=== PATIENT | female | born 1970 | race Two or more races ===

== ENCOUNTER 2016-07-18 10:48 | Emergency (ER) | payer BC ==
[2016-07-18] MEDS ORDERED: Sodium Chloride 0.9% 10 ML Syringe FLUSH PRN (11:25)
--- NOTE | 2016-07-18 11:30 | EDM.PDOC ---
ED HISTORY OF PRESENT ILLNESS - General Chief Complaint: Back Pain or Injury Stated Complaint: MID BACK PAIN WHEN BREATHING Time Seen by Provider: 07/18/16 11:14 Source of Information: Reports: Patient History Limitations: Reports: No limitations - History of Present Illness INITIAL COMMENTS - FREE TEXT/NARRATIVE: Patient presents for evaluation and treatment of mid back pain and shortness of breath. Patient reports that the symptoms woke her from sleep around 9 AM this morning. She states that she has upper back pain that is worse with breathing, movement and walking. She reports leaning forward improves the pain. Patient reports that the pain comes and go. She describes this as a pressure. She states that a 9/10 at its worst and is currently a 9 out of 10. She has not take anything for the pain thus far. She denies any trauma to her chest or back. She denies any chest pain, nausea, vomiting, diaphoresis. She reports that she has some swelling in her lower legs. States She was ill with a common cold recently. Symptoms have mostly resolved. patient is concerned that she may have a blood clot. She states that as a child she had a blood clot in her right arm. She states that she has a family history of protein S deficiency and has multiple family members with blood clots. She reports travel to [place] in May but no travel since then. She is not on any medications. She has not have any known medical conditions. 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 No other back problems. 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 Social & Family History - Tobacco Use Smoking Status *Q: Former Smoker Used Tobacco, but Quit: Yes Month Tobacco Last Used: 17 years ago Second Hand Smoke Exposure: No - Caffeine Use Caffeine Use: Reports: Coffee - Recreational Drug Use Recreational Drug Use: No ED ROS GENERAL - Review of Systems Review Of Systems: See Below Constitutional: Denies: fever Respiratory: Reports: pleuritic chest pain. Denies: shortness of breath Cardiovascular: Reports: Edema. Denies: Chest pain GI/Abdominal: Denies: Nausea, Vomiting Musculoskeletal: Reports: back pain (mid to upper back) ED EXAM, GENERAL - Physical Exam Exam: See Below Exam Limited By: No limitations General Appearance: alert, WD/WN, no apparent distress Ears: normal external exam Nose: normal inspection Throat/Mouth: Normal inspection, Normal lips, Normal teeth, Normal gums, Normal oropharynx, Normal voice, No airway compromise Neck: normal inspection, non-tender, full range of motion Respiratory/Chest: no respiratory distress, lungs clear, normal breath sounds, chest non-tender Cardiovascular: normal peripheral pulses, regular rate, rhythm, no edema, no murmur Peripheral Pulses: 2+: radial (L), radial (R) GI/Abdominal: soft, non tender Extremities: other (negative homans sign) Neurological: alert, oriented, normal cognition, normal gait Psychiatric: normal affect, normal mood Skin Exam: Warm, Dry, No rash EKG INTERPRETATION EKG Date: 07/18/16 Time: 11:50 Rhythm: NSR Rate (beats/min): 73 [place]: normal P-wave: present QRS: normal ST-T: normal QT: normal Comparison: NA - no prior EKG EKG Interpretation Comments: NSR at 73 bpm. No acute findings. Reviewed by myself and Dr. Stokes. Course - Vital Signs Last Recorded V/S: Last Vital Signs Temp 36.8 C 07/18/16 10:58 Pulse 63 07/18/16 14:17 Resp 16 07/18/16 14:17 BP 147/83 H 07/18/16 14:17 Pulse Ox 100 07/18/16 14:17 - Orders/Labs/Meds Labs: Laboratory Tests 07/18/16 07/18/16 07/18/16 Range/Units 11:49 11:49 11:49 WBC 5.76 (3.98-10.04) K/mm3 RBC 4.66 (3.98-5.22) M/mm3 Hgb 13.0 (11.2-15.7) gm/L Hct 40.4 (34.1-44.9) % MCV 86.7 (79.4-94.8) fl MCH 27.9 (25.6-32.2) pg MCHC 32.2 (32.2-35.5) g/dl RDW Std Deviation 42.8 (36.4-46.3) fL Plt Count 398 H (182-369) K/mm3 MPV 10.0 (9.4-12.3) fl Neut % (Auto) 57.1 (34.0-71.1) % Lymph % (Auto) 31.9 (19.3-51.7) % [place] % (Auto) 6.1 (4.7-12.5) % Eos % (Auto) 4.0 (0.7-5.8) Baso % (Auto) 0.7 (0.1-1.2) % Neut # 3.29 (1.56-6.13) K/mm3 Lymph # 1.84 (1.18-3.74) K/mm3 [place] # 0.35 (0.24-0.36) K/mm3 Eos # 0.23 (0.04-0.36) K/mm3 Baso # 0.04 (0.01-0.08) K/mm3 ESR 21 H (0-20) mm/hr D-Dimer, Quantitative 0.37 (0.19-0.59) mg/L Sodium (136-145) mEq/L Potassium (3.5-5.1) mEq/L Chloride (98-107) mEq/L Carbon Dioxide (21-32) mEq/L Anion Gap (5-15) BUN (7-18) mg/dL Creatinine (0.55-1.02) mg/dL Est Cr Clr Drug Dosing mL/min Estimated GFR (MDRD) (>60) mL/min BUN/Creatinine Ratio (14-18) Glucose (74-106) mg/dL Calcium (8.5-10.1) mg/dL Total Bilirubin (0.2-1.0) mg/dL AST (15-37) U/L ALT (14-59) U/L Alkaline Phosphatase (46-116) U/L Troponin I (0.00-0.056) ng/mL C-Reactive Protein (<1.0) mg/dL Total Protein (6.4-8.2) g/dl Albumin (3.4-5.0) g/dl Globulin gm/dL Albumin/Globulin Ratio (1-2) Lipase (73-393) U/L 07/18/16 Range/Units 11:49 WBC (3.98-10.04) K/mm3 RBC (3.98-5.22) M/mm3 Hgb (11.2-15.7) gm/L Hct (34.1-44.9) % MCV (79.4-94.8) fl MCH (25.6-32.2) pg MCHC (32.2-35.5) g/dl RDW Std Deviation (36.4-46.3) fL Plt Count (182-369) K/mm3 MPV (9.4-12.3) fl Neut % (Auto) (34.0-71.1) % Lymph % (Auto) (19.3-51.7) % [place] % (Auto) (4.7-12.5) % Eos % (Auto) (0.7-5.8) Baso % (Auto) (0.1-1.2) % Neut # (1.56-6.13) K/mm3 Lymph # (1.18-3.74) K/mm3 [place] # (0.24-0.36) K/mm3 Eos # (0.04-0.36) K/mm3 Baso # (0.01-0.08) K/mm3 ESR (0-20) mm/hr D-Dimer, Quantitative (0.19-0.59) mg/L Sodium 141 (136-145) mEq/L Potassium 4.0 (3.5-5.1) mEq/L Chloride 106 (98-107) mEq/L Carbon Dioxide 23 (21-32) mEq/L Anion Gap 16.0 H (5-15) BUN 10 (7-18) mg/dL Creatinine 0.8 (0.55-1.02) mg/dL Est Cr Clr Drug Dosing 78.23 mL/min Estimated GFR (MDRD) > 60 (>60) mL/min BUN/Creatinine Ratio 12.5 L (14-18) Glucose 106 (74-106) mg/dL Calcium 8.5 (8.5-10.1) mg/dL Total Bilirubin 1.0 (0.2-1.0) mg/dL AST 10 L (15-37) U/L ALT 20 (14-59) U/L Alkaline Phosphatase 81 (46-116) U/L Troponin I < 0.017 (0.00-0.056) ng/mL C-Reactive Protein 0.4 (<1.0) mg/dL Total Protein 7.4 (6.4-8.2) g/dl Albumin 3.5 (3.4-5.0) g/dl Globulin 3.9 gm/dL Albumin/Globulin Ratio 0.9 L (1-2) Lipase 166 (73-393) U/L Meds: Medications Discontinued Medications Generic Name Dose Route Start Last Admin Trade Name Freq PRN Reason Stop Dose Admin Ketorolac Tromethamine 30 mg 07/18/16 12:49 07/18/16 12:52 Toradol IVPUSH 07/18/16 12:50 30 mg ONETIME ONE Administration Oxycodone/Acetaminophen 1 tab 07/18/16 13:38 07/18/16 13:40 Percocet 325-5 Mg PO 07/18/16 13:39 1 tab ONETIME ONE Administration Oxycodone/Acetaminophen Confirm 07/18/16 13:39 07/18/16 14:15 Percocet 325-5 Mg Administered 07/18/16 13:40 Not Given Dose 1 tab .ROUTE .STK-MED ONE Sodium Chloride 10 ml 07/18/16 11:25 07/18/16 11:28 Saline Flush FLUSH 10 ml ASDIRECTED PRN Administration Keep Vein Open - Radiology Interpretation Free Text/Narrative:: Chest 2 view reviewed by myself and Dr. Stokes. No acute intrathoracic process. - Re-Assessments/Exams Free Text/Narrative Re-Assessment/Exam: 07/18/16 12:45 Labs returned White blood cell count is normal at 5.76, hemoglobin 13.0 platelets are 398. D-dimer is within normal limits at 0.37. Troponin is within normal limits at less than 0.017. Lipase is within normal limits at 166. CRP is within normal limits at 0.4. ESR slightly elevated at 21. Sodium is 141, potassium 4.0, chloride is 106. Anion gap is 16.0. Discussed the labs, EKG and imaging results with the patient. Patient would like some medication at this time help with the discomfort (Patient initially declined medication for pain). Will give IV Toradol. Monitor for a short time in the ER but plan to send home today. 07/18/16 13:40 Patient reports pain is unchanged. Would like something stronger for pain. Will give 1 percocet PO. She would then like to go home. Will discharge home at this time. Discharge instructions as documented. Departure - Departure Time of Disposition: 13:39 Disposition: Home, Self-Care 01 Condition: fair Clinical Impression: Pleurisy Prescriptions: Acetaminophen/oxyCODONE [Percocet 325-5 MG] 1 tab PO Q6H PRN #10 tablet PRN Reason: Pain Instructions: Pleurisy, [id number] Referrals: PCP,None [Primary Care Provider] - Forms: ED Department Discharge Additional Instructions: You were given medication in the ER that can affect your ability to drive and operate machinery. Do not drive or operate machinery within 12 hours of taking prescription narcotic pain medication. Rest. Drink plenty of fluids. I recommend [id number] NSAIDs such as ibuprofen or Aleve for your pain relief. may take the Percocet 1/2-1 tab every 4-6 hours as needed for severe pain. Do not drive or operate machinery within 12 hours of taking the Percocet. Percocet can be habit-forming, I recommend you take as few of these as needed to control your pain. Expect your symptoms to last about one week. Should your symptoms persist beyond one week I recommend you followup with a family practice or internal medicine provider. Please return to the ER should your symptoms change or worsen.
[2016-07-18] MEDS ORDERED: Ketorolac 30 MG/ML SDV IVPUSH ONE (12:49)
[2016-07-18] MEDS ORDERED: Acetaminophen/oxyCODONE 325-5 MG Tab PO ONE (13:38)
[2016-07-18] MEDS ORDERED: Acetaminophen/oxyCODONE 325-5 MG Tab ONE (13:39)
[2016-07-18 14:18] VITALS: BP 147/83
--- NOTE | 2016-07-19 12:54 | CR ---
Chest: Two views of the chest were obtained. Comparison: No previous study. Heart size at the upper limits of normal. Upper mediastinum is normal. Lungs are clear with no acute infiltrates. Bony structures are unremarkable. Impression: 1. Heart size at the upper limits of normal. Nothing acute is seen on two-view chest x-ray. Diagnostic code #2
== END 2016-07-18 14:00 | disposition home or self-care (01) ==
LOC: JD.ED 10:48
DX: R09.1 Pleurisy (principal); Z98.890 Other specified postprocedural states; Z79.899 Other long term (current) drug therapy; Z91.041 Radiographic dye allergy status; Z91.013 Allergy to seafood; Z87.891 Personal history of nicotine dependence
CPT/HCPCS: 36415; 71020; 80053; 83690; 84484; 85025; 85379; 85652; 86140; 93005; 96374; 99285; A9270; J1885; J7050; 99284

== ENCOUNTER 2017-01-08 06:55 | Observation (INO) | payer BC ==
[~2017-01-08 06:55] MED LIST: Lidocaine 1%/Sod Bicarbonate in NS 8.4% 1 ML Syringe IV PRN; Sodium Chloride 0.9% 10 ML Syringe FLUSH PRN
[2017-01-08] MEDS ORDERED: Lidocaine 1%/Sod Bicarbonate in NS 8.4% 1 ML Syringe PRN (07:15)
[2017-01-08] MEDS ORDERED: Lidocaine 1% with EPINEPHrine 1:100,000 20 ML MDV ONE (07:15)
[2017-01-08] MEDS ORDERED: Bupivacaine 0.5% 30 ML SDV ONE (07:16)
[2017-01-08] MEDS ORDERED: Sodium Chloride 0.9% 50 ML SDV ONE (07:16)
[2017-01-08] MEDS: Lactated Ringers 1,000 ML IV SCH ×2 (07:20→13:17)
[2017-01-08] MEDS ORDERED: Scopolamine 1.5 MG Transdermal Patch TOP ONE (07:30)
[2017-01-08] MEDS ORDERED: fentaNYL 250 MCG/5 ML SDV ONE (07:31)
[2017-01-08] MEDS ORDERED: Propofol 200 MG/20 ML SDV ONE (07:31)
[2017-01-08] MEDS ORDERED: Midazolam 1 MG/ML 2 ML SDV ONE (07:31)
[2017-01-08] MEDS ORDERED: Lidocaine 1% 4 ML ONE (07:32)
[2017-01-08] MEDS ORDERED: Dexamethasone 4 MG/ML 5 ML MDV ONE (07:33)
[2017-01-08] MEDS ORDERED: Ondansetron 4 MG/2 ML SDV ONE (07:33)
[2017-01-08] MEDS ORDERED: Rocuronium 50 MG/5 ML Vial ONE (07:33)
[2017-01-08] MEDS ORDERED: ceFAZolin 1 GM Vial ONE (07:34)
--- NOTE | 2017-01-08 07:34 | PCM.PREANE ---
Preanesthetic Assessment - Procedure Proposed Procedure: [facility] - Anesthesia/Transfusion/Family Hx Anesthesia History: Prior Anesthesia Reaction Type of Anesthesia Reaction: Excessive Nausea/Vomiting Family History of Anesthesia Reaction: No Transfusion History: No Prior Transfusion(s) - Review of Systems General: No Symptoms Pulmonary: No Symptoms Cardiovascular: No Symptoms Gastrointestinal: No Symptoms Neurological: Headache (occasional ) Other: Reports: None - Physical Assessment NPO Status Date: 01/07/17 NPO Status Time: 21:30 O2 Sat by Pulse Oximetry: 97 Respiratory Rate: 17 Vital Signs: Last Vital Signs Temp 36.4 C 01/08/17 07:02 Pulse 82 01/08/17 07:02 Resp 17 01/08/17 07:02 BP 162/90 H 01/08/17 07:02 Pulse Ox 97 01/08/17 07:02 Height: 1.63 m Weight: 116.12 kg ASA Class: 2 Mental Status: Alert & Oriented x3 Airway Class: Mallampati = 1 Dentition: Reports: Normal Dentition Thyro-Mental Finger Breadths: 3 Mouth Opening Finger Breadths: 3 ROM/Head Extension: Full Lungs: Clear to Auscultation, Normal Respiratory Effort Cardiovascular: Regular Rate, Regular Rhythm - Lab Values: Laboratory Last Values WBC 5.93 K/mm3 (3.98-10.04) 01/08/17 07:16 RBC 4.44 M/mm3 (3.98-5.22) 01/08/17 07:16 Hgb 12.2 gm/L (11.2-15.7) 01/08/17 07:16 Hct 38.0 % (34.1-44.9) 01/08/17 07:16 MCV 85.6 fl (79.4-94.8) 01/08/17 07:16 MCH 27.5 pg (25.6-32.2) 01/08/17 07:16 MCHC 32.1 g/dl (32.2-35.5) L 01/08/17 07:16 RDW Std Deviation 43.2 fL (36.4-46.3) 01/08/17 07:16 Plt Count 454 K/mm3 (182-369) H 01/08/17 07:16 MPV 9.6 fl (9.4-12.3) 01/08/17 07:16 Neut % (Auto) 56.2 % (34.0-71.1) 01/08/17 07:16 Lymph % (Auto) 30.5 % (19.3-51.7) 01/08/17 07:16 [place] % (Auto) 6.4 % (4.7-12.5) 01/08/17 07:16 Eos % (Auto) 5.4 (0.7-5.8) 01/08/17 07:16 Baso % (Auto) 1.2 % (0.1-1.2) 01/08/17 07:16 Neut # (Auto) 3.33 K/mm3 (1.56-6.13) 01/08/17 07:16 Lymph # (Auto) 1.81 K/mm3 (1.18-3.74) 01/08/17 07:16 [place] # (Auto) 0.38 K/mm3 (0.24-0.36) H 01/08/17 07:16 Eos # (Auto) 0.32 K/mm3 (0.04-0.36) 01/08/17 07:16 Baso # (Auto) 0.07 K/mm3 (0.01-0.08) 01/08/17 07:16 - Allergies Allergies/Adverse Reactions: Allergies Allergy/AdvReac Type Severity Reaction Status Date / Time adhesive Allergy Rash Verified 01/08/17 07:23 Iodine and Iodide Containing Allergy Anaphylactic Verified 01/08/17 07:23 Produc Shock shellfish derived Allergy Anaphylactic Verified 01/08/17 07:23 Shock - Blood Blood Available: No Product(s) Available: None (type and screen completed ) - Anesthesia Plan Pre-Op Medication Ordered: None - Acknowledgements Anesthesia Type Planned: General Anesthesia Pt an Appropriate Candidate for the Planned Anesthesia: Yes Alternatives and Risks of Anesthesia Discussed w Pt/Guardian: Yes Pt/Guardian Understands and Agrees with Anesthesia Plan: Yes PreAnesthesia Questionnaire - Past Health History Medical/Surgical History: Denies Medical/Surgical History HEENT History: Reports: Allergic Rhinitis Cardiovascular History: Reports: None Respiratory History: Reports: None Gastrointestinal History: Reports: None Genitourinary History: Reports: None 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) Other OB/BYN History: Menorrhagia Musculoskeletal History: Reports: None Neurological History: Reports: Migraines Psychiatric History: Reports: None Endocrine/Metabolic History: Reports: None Hematologic History: Reports: None Immunologic History: Reports: None Oncologic (Cancer) History: Reports: None Dermatologic History: Reports: Urticaria Other Dermatologic History: chronic hive disorder - Infectious Disease History Infectious Disease History: Reports: None - Past Surgical History Head Surgeries/Procedures: Reports: None HEENT Surgical History: Reports: None Cardiovascular Surgical History: Reports: None Respiratory Surgical History: Reports: None GI Surgical History: Reports: None Female Surgical History: Reports: Section, Tubal Ligation Endocrine Surgical History: Reports: None Neurological Surgical History: Reports: None Musculoskeletal Surgical History: Reports: None Oncologic Surgical History: Reports: None Dermatological Surgical History: Reports: None - SUBSTANCE USE Smoking Status *Q: Former Smoker (quit 178 years ago) Tobacco Use Within Last Twelve Months: Cigarettes Second Hand Smoke Exposure: No Recreational Drug Use History: No - HOME MEDS Home Medications: Home Meds Fexofenadine [Alem] 180 mg PO DAILY PRN 07/03/15 [History] - CURRENT (IN HOUSE) MEDS Current Meds: Current Medications Lactated Ringer's (Ringers, Lactated) 1,000 mls @ 125 mls/hr IV ASDIRECTED CHIDI Stop: 01/08/17 23:00 Last Admin: 01/08/17 07:20 Dose: 125 mls/hr Lidocaine/Sodium Bicarbonate (Buffered Lidocaine 1% In Ns 8.4%) 0.25 ml .XX ONETIME PRN PRN Reason: Prior to IV Start Stop: 01/08/17 18:00 Last Admin: 01/08/17 07:19 Dose: 0.25 ml Scopolamine (Transderm-Scop) 1.5 mg TOP ONETIME ONE Stop: 01/08/17 07:31 Last Admin: 01/08/17 07:28 Dose: 1.5 mg Sodium Chloride (Saline Flush) 10 ml FLUSH ASDIRECTED PRN PRN Reason: Keep Vein Open Stop: 01/08/17 18:00 Discontinued Medications Bupivacaine HCl (Marcaine 0.5%) Confirm Administered Dose 30 ml .ROUTE .STK-MED ONE Stop: 01/08/17 07:17 Cefazolin Sodium (Ancef) Confirm Administered Dose 2 gm .ROUTE .STK-MED ONE Stop: 01/08/17 07:35 Dexamethasone (Dexamethasone) Confirm Administered Dose 20 mg .ROUTE .STK-MED ONE Stop: 01/08/17 07:34 Fentanyl (Sublimaze) Confirm Administered Dose 250 mcg .ROUTE .STK-MED ONE Stop: 01/08/17 07:32 Lidocaine HCl (Xylocaine-Mpf 1%) Confirm Administered Dose 4 mls @ as directed .ROUTE .STK-MED ONE Stop: 01/08/17 07:33 Lidocaine/Epinephrine (Xylocaine 1% With Epinephrine 1:100,000) Confirm Administered Dose 20 ml .ROUTE .STK-MED ONE Stop: 01/08/17 07:16 Lidocaine/Sodium Bicarbonate (Buffered Lidocaine 1% In Ns 8.4%) 0.25 ml IV ONETIME PRN PRN Reason: Prior to IV Start Midazolam HCl (Versed 1 Mg/Ml) Confirm Administered Dose 2 mg .ROUTE .STK-MED ONE Stop: 01/08/17 07:32 Ondansetron HCl (Zofran) Confirm Administered Dose 4 mg .ROUTE .STK-MED ONE Stop: 01/08/17 07:34 Propofol (Diprivan 20 Ml) Confirm Administered Dose 200 mg .ROUTE .STK-MED ONE Stop: 01/08/17 07:32 Rocuronium [place] (Zemuron) Confirm Administered Dose 50 mg .ROUTE .STK-MED ONE Stop: 01/08/17 07:34 Sodium Chloride (Normal Saline) Confirm Administered Dose 50 ml .ROUTE .STK-MED ONE Stop: 01/08/17 07:17
[2017-01-08] MEDS ORDERED: Ketamine 500 mg/10 ML MDV ONE (08:23)
[2017-01-08] MEDS ORDERED: HYDROmorphone 1 MG/ML Syringe ONE (08:55)
[2017-01-08] MEDS ORDERED: Promethazine 6.25 MG in Sodium Chloride 0.9% 50 ML IV PRN (09:57)
[2017-01-08] MEDS ORDERED: Meperidine PF 50 MG/ML Syringe IVPUSH PRN (09:57)
[2017-01-08] MEDS ORDERED: diphenhydrAMINE 50 MG/ML SDV IVPUSH PRN (09:57)
[2017-01-08] MEDS ORDERED: HYDROmorphone 0.5 MG/0.5 ML Syringe IVPUSH PRN ×2 (10:30→12:43)
[2017-01-08] MEDS ORDERED: fentaNYL 100 MCG/2 ML SDV IVPUSH PRN (10:30)
[2017-01-08] MEDS ORDERED: Neostigmine Methylsulfate 10 MG/10 ML MDV ONE (10:50)
[2017-01-08] MEDS ORDERED: Glycopyrrolate 0.2 MG/ML SDV ONE (10:50)
--- NOTE | 2017-01-08 11:07 | PCM.POSTAN ---
POST ANESTHESIA ASSESSMENT - MENTAL STATUS Mental Status: Somnolent - VITAL SIGNS Pulse Rate: 73 SaO2: 97 Resp Rate: 17 Blood Pressure: 132/93 Temperature: 36.1 C - RESPIRATORY Respiratory Status: Respiratory Rate WNL, Airway Patent, O2 Saturation Stable, Supplemental Oxygen - CARDIOVASCULAR CV Status: Pulse Rate WNL, Blood Pressure Stable - GASTROINTESTINAL GI Status: No Symptoms - PAIN Pain Score: 0 - POST OP HYDRATION Hydration Status: Adequate & Stable
--- NOTE | 2017-01-08 11:07 | PCM.OPNOTE ---
- General Post-Op/Procedure Note Date of Surgery/Procedure: 01/08/17 Operative Procedure(s): Laparoscope assisted vaginal hysterectomy bilateral salpingo-oophorectomy 64592 Pre Op Diagnosis: Menorrhagia with bleeding every 2 weeks lasting 9 days heavy flow Post-Op Diagnosis: Same Anesthesia Technique: General ET Tube Primary Surgeon: Len Trent Secondary Surgeon: Marian Billy Anesthesia Provider: Wyatt Ramsey Lifter: Kajal Ray (MS4) Lifter: Divya Wilder (PAS) Fluid Replacement, Intraop: 1,500 Output, Urine Amount: 250 EBL in mLs: 100 Complications: None Condition: Good Free Text/Narrative:: Patient was transported to operating room #2 and placed under general anesthesia with endotracheal intubation the low dorsal lithotomy position and prepared and draped in a sterile fashion with non-iodine prep. Examination under anesthesia revealed upper limits to 6 weeks size uterus no adnexal masses SCDs in place and functioning prior surgery Ancef 2 g given intravenously prior to surgery timeout performed confirming name date of and procedure as laparoscope assisted vaginal hysterectomy bilateral salpingo-oophorectomy possible total abdominal hysterectomy bilateral salpingo-oophorectomy ( laparoscope assisted vaginal hysterectomy with bilateral salpingo-oophorectomy was performed) uterine manipulator was placed Hess catheter had been placed gravity drainage prior to placing the uterine manipulator and 2 mL of 0.5% Marcaine injected in the area of the planned umbilical incision and suprapubic incision. A 5 mm incision made at the umbilicus and suprapubically and varies needle introduced and pneumoperitoneum was obtained 5 mm trocar was then introduced and prompt visualization of the pelvic organs was accomplished the suprapubic 5 mm port was then passed and utilizing manipulator the tubes that were remaining after the tubal ligation the ovaries and uterus were identified the appendix was normal of the liver was normal. The decision was made to proceed with the laparoscope assisted portion of the hysterectomy additional trocar ports were placed on the left and right side trying to avoid the inferior epigastric vessels the left tube and ovary were grasped and elevated and crossclamping utilizing the LigaSure crossclamping activating and incising the infundibulopelvic ligament with good hemostasis. Proceeding towards the uterus remaining in the the area below the ovary and tube crossclamping activating and incising with the LigaSure until the tube and ovary were freed up from their blood supply the round ligament was then crossclamped with LigaSure activated and incised and proceeding caudad crossclamping activating and incising until the uterine supplied of blood of the left side was crossclamped and then a bladder flap was created crossclamping activating and incising with LigaSure until hemostasis was confirmed. Same procedure was carried out on the opposite side. And hemostasis was normal the tubes and ovaries were freed from their blood supply and attachments and decision made to then proceed vaginally. The trochars were left in place to reevaluate the surgical area after completion of the surgery. The uterus was grasped vaginally having removed the uterine manipulator during the vaginal portion of the procedure the cervix was injected with 0.25% lidocaine with epinephrine utilizing 10 mL and circumscribing the cervix with a knife the posterior colpotomy was performed. The uterosacral cardinal ligaments were then crossclamped utilizing LigaSure impact. Crossclamping activating and incising proceeding cephalad crossclamping activating and incising small pedicles were removed and the anterior colpotomy was able to be performed. The uterus was removed intact with the uterus and tubes and ovaries. Sponge needle pack asthma sharp count correct 2 the posterior cuff anterior cuff were closed with running locking suture of #0 Monocryl. Reinspection of the surgical site utilizing the laparoscope showed no bleeding irrigation carried out the irrigation fluid removed and still no bleeding sponge needle pack asthma sharp count correct 2 and the trochars were removed from the abdomen and the 4 incisions closed with interrupted 4-0 Monocryl and Dermabond applied. No blood transfusions were required not anticipated. Patient was transported postanesthesia care unit in satisfactory condition. I talked with family QUESTIONS were answered to their voiced satisfaction. One set of pictures taken image 001 shows the uterus and left side image 002 shows the left ovary and tube image 003 shows a right ovary and tube image 004 shows right ovary attempted appendix and the cecum. Image 005 shows the liver and diaphragm area. Image 006 shows the area of the surgery with no bleeding after completion of the procedure. I talked with the family and they live in town but I we will probably keep patient on observation status overnight because of difficulty of the procedure and to treat any nausea and vomiting as patient has a history of having nausea after surgery. And also for pain management.
[2017-01-08] MEDS ORDERED: Ketorolac 30 MG/ML SDV ONE (11:12)
--- NOTE | 2017-01-08 11:12 | PCM.DCSUM1 ---
Discharge Summary - Hospital Course Free Text/Narrative:: [facility] Post-Op/Procedure Note Patient Name: ANDI FIELDS Date of : 68 Patient Status: Surgical Day Care Attending Provider: Len Trent Date: 01/08/17 10:54 Initialization Date: 01/08/17 10:54 - General Post-Op/Procedure Note Date of Surgery/Procedure: 01/08/17 Operative Procedure(s): Laparoscope assisted vaginal hysterectomy bilateral salpingo-oophorectomy 33475 Pre Op Diagnosis: Menorrhagia with bleeding every 2 weeks lasting 9 days heavy flow Post-Op Diagnosis: Same Anesthesia Technique: General ET Tube Primary Surgeon: Len Trent Secondary Surgeon: Marian Billy Anesthesia Provider: Wyatt Ramsey Laminator Preforms: Kajal Ray (MS4) Laminator Preforms: Divya Wilder (PAS) Fluid Replacement, Intraop: 1,500 Output, Urine Amount: 250 EBL in mLs: 100 Complications: None Condition: Good Free Text/Narrative:: Patient was transported to operating room #2 and placed under general anesthesia with endotracheal intubation the low dorsal lithotomy position and prepared and draped in a sterile fashion with non-iodine prep. Examination under anesthesia revealed upper limits to 6 weeks size uterus no adnexal masses SCDs in place and functioning prior surgery Ancef 2 g given intravenously prior to surgery timeout performed confirming name date of and procedure as laparoscope assisted vaginal hysterectomy bilateral salpingo-oophorectomy possible total abdominal hysterectomy bilateral salpingo-oophorectomy ( laparoscope assisted vaginal hysterectomy with bilateral salpingo-oophorectomy was performed) uterine manipulator was placed Hess catheter had been placed gravity drainage prior to placing the uterine manipulator and 2 mL of 0.5% Marcaine injected in the area of the planned umbilical incision and suprapubic incision. A 5 mm incision made at the umbilicus and suprapubically and varies needle introduced and pneumoperitoneum was obtained 5 mm trocar was then introduced and prompt visualization of the pelvic organs was accomplished the suprapubic 5 mm port was then passed and utilizing manipulator the tubes that were remaining after the tubal ligation the ovaries and uterus were identified the appendix was normal of the liver was normal. The decision was made to proceed with the laparoscope assisted portion of the hysterectomy additional trocar ports were placed on the left and right side trying to avoid the inferior epigastric vessels the left tube and ovary were grasped and elevated and crossclamping utilizing the LigaSure crossclamping activating and incising the infundibulopelvic ligament with good hemostasis. Proceeding towards the uterus remaining in the the area below the ovary and tube crossclamping activating and incising with the LigaSure until the tube and ovary were freed up from their blood supply the round ligament was then crossclamped with LigaSure activated and incised and proceeding caudad crossclamping activating and incising until the uterine supplied of blood of the left side was crossclamped and then a bladder flap was created crossclamping activating and incising with LigaSure until hemostasis was confirmed. Same procedure was carried out on the opposite side. And hemostasis was normal the tubes and ovaries were freed from their blood supply and attachments and decision made to then proceed vaginally. The trochars were left in place to reevaluate the surgical area after completion of the surgery. The uterus was grasped vaginally having removed the uterine manipulator during the vaginal portion of the procedure the cervix was injected with 0.25% lidocaine with epinephrine utilizing 10 mL and circumscribing the cervix with a knife the posterior colpotomy was performed. The uterosacral cardinal ligaments were then crossclamped utilizing LigaSure impact. Crossclamping activating and incising proceeding cephalad crossclamping activating and incising small pedicles were removed and the anterior colpotomy was able to be performed. The uterus was removed intact with the uterus and tubes and ovaries. Sponge needle pack asthma sharp count correct 2 the posterior cuff anterior cuff were closed with running locking suture of #0 Monocryl. Reinspection of the surgical site utilizing the laparoscope showed no bleeding irrigation carried out the irrigation fluid removed and still no bleeding sponge needle pack asthma sharp count correct 2 and the trochars were removed from the abdomen and the 4 incisions closed with interrupted 4-0 Monocryl and Dermabond applied. No blood transfusions were required not anticipated. Patient was transported postanesthesia care unit in satisfactory condition. I talked with family QUESTIONS were answered to their voiced satisfaction. One set of pictures taken image 001 shows the uterus and left side image 002 shows the left ovary and tube image 003 shows a right ovary and tube image 004 shows right ovary attempted appendix and the cecum. Image 005 shows the liver and diaphragm area. Image 006 shows the area of the surgery with no bleeding after completion of the procedure. I talked with the family and they live in town but I we will probably keep patient on observation status overnight because of difficulty of the procedure and to treat any nausea and vomiting as patient has a history of having nausea after surgery. And also for pain management. HPI Initial Comments: [facility] Post-Op/Procedure Note Patient Name: ANDI FIELDS Date of : 68 Patient Status: Surgical Day Care Attending Provider: Len Trent Date: 01/08/17 10:54 Initialization Date: 01/08/17 10:54 - General Post-Op/Procedure Note Date of Surgery/Procedure: 01/08/17 Operative Procedure(s): Laparoscope assisted vaginal hysterectomy bilateral salpingo-oophorectomy 98650 Pre Op Diagnosis: Menorrhagia with bleeding every 2 weeks lasting 9 days heavy flow Post-Op Diagnosis: Same Anesthesia Technique: General ET Tube Primary Surgeon: Len Trent Secondary Surgeon: Marian Billy Anesthesia Provider: Wyatt Ramsey Laminator Preforms: Kajal Ray (MS4) Laminator Preforms: Divya Wilder (PAS) Fluid Replacement, Intraop: 1,500 Output, Urine Amount: 250 EBL in mLs: 100 Complications: None Condition: Good Free Text/Narrative:: Patient was transported to operating room #2 and placed under general anesthesia with endotracheal intubation the low dorsal lithotomy position and prepared and draped in a sterile fashion with non-iodine prep. Examination under anesthesia revealed upper limits to 6 weeks size uterus no adnexal masses SCDs in place and functioning prior surgery Ancef 2 g given intravenously prior to surgery timeout performed confirming name date of and procedure as laparoscope assisted vaginal hysterectomy bilateral salpingo-oophorectomy possible total abdominal hysterectomy bilateral salpingo-oophorectomy ( laparoscope assisted vaginal hysterectomy with bilateral salpingo-oophorectomy was performed) uterine manipulator was placed Hess catheter had been placed gravity drainage prior to placing the uterine manipulator and 2 mL of 0.5% Marcaine injected in the area of the planned umbilical incision and suprapubic incision. A 5 mm incision made at the umbilicus and suprapubically and varies needle introduced and pneumoperitoneum was obtained 5 mm trocar was then introduced and prompt visualization of the pelvic organs was accomplished the suprapubic 5 mm port was then passed and utilizing manipulator the tubes that were remaining after the tubal ligation the ovaries and uterus were identified the appendix was normal of the liver was normal. The decision was made to proceed with the laparoscope assisted portion of the hysterectomy additional trocar ports were placed on the left and right side trying to avoid the inferior epigastric vessels the left tube and ovary were grasped and elevated and crossclamping utilizing the LigaSure crossclamping activating and incising the infundibulopelvic ligament with good hemostasis. Proceeding towards the uterus remaining in the the area below the ovary and tube crossclamping activating and incising with the LigaSure until the tube and ovary were freed up from their blood supply the round ligament was then crossclamped with LigaSure activated and incised and proceeding caudad crossclamping activating and incising until the uterine supplied of blood of the left side was crossclamped and then a bladder flap was created crossclamping activating and incising with LigaSure until hemostasis was confirmed. Same procedure was carried out on the opposite side. And hemostasis was normal the tubes and ovaries were freed from their blood supply and attachments and decision made to then proceed vaginally. The trochars were left in place to reevaluate the surgical area after completion of the surgery. The uterus was grasped vaginally having removed the uterine manipulator during the vaginal portion of the procedure the cervix was injected with 0.25% lidocaine with epinephrine utilizing 10 mL and circumscribing the cervix with a knife the posterior colpotomy was performed. The uterosacral cardinal ligaments were then crossclamped utilizing LigaSure impact. Crossclamping activating and incising proceeding cephalad crossclamping activating and incising small pedicles were removed and the anterior colpotomy was able to be performed. The uterus was removed intact with the uterus and tubes and ovaries. Sponge needle pack asthma sharp count correct 2 the posterior cuff anterior cuff were closed with running locking suture of #0 Monocryl. Reinspection of the surgical site utilizing the laparoscope showed no bleeding irrigation carried out the irrigation fluid removed and still no bleeding sponge needle pack asthma sharp count correct 2 and the trochars were removed from the abdomen and the 4 incisions closed with interrupted 4-0 Monocryl and Dermabond applied. No blood transfusions were required not anticipated. Patient was transported postanesthesia care unit in satisfactory condition. I talked with family QUESTIONS were answered to their voiced satisfaction. One set of pictures taken image 001 shows the uterus and left side image 002 shows the left ovary and tube image 003 shows a right ovary and tube image 004 shows right ovary attempted appendix and the cecum. Image 005 shows the liver and diaphragm area. Image 006 shows the area of the surgery with no bleeding after completion of the procedure. I talked with the family and they live in town but I we will probably keep patient on observation status overnight because of difficulty of the procedure and to treat any nausea and vomiting as patient has a history of having nausea after surgery. And also for pain management. Brief History: [facility] . [facility]Pro[facility]. [facility]: [id number] Date of : Patient Status: Surgical Day Care. Attending Provider: Len rTentount Number: [id number]. Date: 01/08/17 10:54Initialization Date: 10:54. - General Post-Op/Procedure Note. Date of Surgery/Procedure: . Operative Procedure(s): Laparoscope assisted vaginal hysterectomy bilateral salpingo-oophorectomy 02178. Pre Op Diagnosis: Menorrhagia with bleeding every 2 weeks lasting 9 days heavy flow. Post-Op Diagnosis: Same. Anesthesia Technique: General ET Tube. Primary Surgeon: Len Trent. Secondary Surgeon: Marian Billy. Anesthesia Provider: Wyatt Ramsey. Laminator Preforms: Kajal Ray (MS4). Laminator Preforms: Divya Wilder (PAS). Fluid Replacement, Intraop: 1,500. Output, Urine Amount: 250. EBL in mLs: 100. Complications: None. Condition: Good. Free Text/Narrative:: Patient was transported to operating room #2 and placed under general anesthesia with endotracheal intubation the low dorsal lithotomy position and prepared and draped in a sterile fashion with non-iodine prep. Examination under anesthesia revealed upper limits to 6 weeks size uterus no adnexal masses SCDs in place and functioning prior surgery Ancef 2 g given intravenously prior to surgery timeout performed confirming name date of and procedure as laparoscope assisted vaginal hysterectomy bilateral salpingo-oophorectomy possible total abdominal hysterectomy bilateral salpingo-oophorectomy (laparoscope assisted vaginal hysterectomy with bilateral salpingo-oophorectomy was performed) uterine manipulator was placed Hess catheter had been placed gravity drainage prior to placing the uterine manipulator and 2 mL of 0.5% Marcaine injected in the area of the planned umbilical incision and suprapubic incision. A 5 mm incision made at the umbilicus and suprapubically and varies needle introduced and pneumoperitoneum was obtained 5 mm trocar was then introduced and prompt visualization of the pelvic organs was accomplished the suprapubic 5 mm port was then passed and utilizing manipulator the tubes that were remaining after the tubal ligation the ovaries and uterus were identified the appendix was normal of the liver was normal. The decision was made to proceed with the laparoscope assisted portion of the hysterectomy additional trocar ports were placed on the left and right side trying to avoid the inferior epigastric vessels the left tube and ovary were grasped and elevated and crossclamping utilizing the LigaSure crossclamping activating and incising the infundibulopelvic ligament with good hemostasis. Proceeding towards the uterus remaining in the the area below the ovary and tube crossclamping activating and incising with the LigaSure until the tube and ovary were freed up from their blood supply the round ligament was then crossclamped with LigaSure activated and incised and proceeding caudad crossclamping activating and incising until the uterine supplied of blood of the left side was crossclamped and then a bladder flap was created crossclamping activating and incising with LigaSure until hemostasis was confirmed. Same procedure was carried out on the opposite side. And hemostasis was normal the tubes and ovaries were freed from their blood supply and attachments and decision made to then proceed vaginally. The trochars were left in place to reevaluate the surgical area after completion of the surgery. The uterus was grasped vaginally having removed the uterine manipulator during the vaginal portion of the procedure the cervix was injected with 0.25% lidocaine with epinephrine utilizing 10 mL and circumscribing the cervix with a knife the posterior colpotomy was performed. The uterosacral cardinal ligaments were then crossclamped utilizing LigaSure impact. Crossclamping activating and incising proceeding cephalad crossclamping activating and incising small pedicles were removed and the anterior colpotomy was able to be performed. The uterus was removed intact with the uterus and tubes and ovaries. Sponge needle pack asthma sharp count correct 2 the posterior cuff anterior cuff were closed with running locking suture of #0 Monocryl. Reinspection of the surgical site utilizing the laparoscope showed no bleeding irrigation carried out the irrigation fluid removed and still no bleeding sponge needle pack asthma sharp count correct 2 and the trochars were removed from the abdomen and the 4 incisions closed with interrupted 4-0 Monocryl and Dermabond applied. No blood transfusions were required not anticipated. Patient was transported postanesthesia care unit in satisfactory condition. I talked with family QUESTIONS were answered to their voiced satisfaction. One set of pictures taken image 001 shows the uterus and left side image 002 shows the left ovary and tube image 003 shows a right ovary and tube image 004 shows right ovary attempted appendix and the cecum. Image 005 shows the liver and diaphragm area. Image 006 shows the area of the surgery with no bleeding after completion of the procedure. I talked with the family and they live in town but I we will probably keep patient on observation status overnight because of difficulty of the procedure and to treat any nausea and vomiting as patient has a history of having nausea after surgery. And also for pain management. - Discharge Data Discharge Date: 01/08/17 Discharge Disposition: Home, Self-Care 01 Condition: Good - Discharge Diagnosis/Problem(s) (1) Menorrhagia SNOMED Code(s): 242191203 ICD Code: N92.0 - EXCESSIVE AND FREQUENT MENSTRUATION WITH REGULAR CYCLE Status: Acute Current Visit: Yes - Patient Summary/Data Operative Procedure(s) Performed: Laparoscope assisted vaginal hysterectomy bilateral salpingo-oophorectomy 96931 Complications: None Consults: None Hospital Course: None - Patient Instructions Diet: Regular Diet as Tolerated Driving: Do Not Drive (2 weeks) Showering/Bathing: May Shower, No Tub Bathing/Swimming (For 6 weeks) Wound/Incision Care: Keep Operative Site/Wound Site Clean and Dry Notify Provider of: Fever, Increased Pain, Swelling and Redness, Drainage, Nausea and/or Vomiting - Discharge Plan Home Medications: Home Meds Fexofenadine [Alem] 180 mg PO DAILY PRN 07/03/15 [History] Referrals: Len Trent MD [Physician] - (4 weeks) - Discharge Summary/Plan Comment DC Time >30 min.: No - Patient Data Vitals - Most Recent: Last Vital Signs Temp 97.0 F 01/08/17 11:07 Pulse 73 01/08/17 11:07 Resp 17 01/08/17 11:07 BP 132/93 H 01/08/17 11:07 Pulse Ox 97 01/08/17 11:07 Weight - Most Recent: 256 lb I&O - Last 24 hours: Intake & Output 01/07/17 01/08/17 01/08/17 22:59 06:59 14:59 Intake Total 1500 Output Total 250 Balance 1250 Lab Results - Last 24 hrs: Laboratory Results - last 24 hr 01/08/17 01/08/17 01/08/17 Range/Units 07:16 07:16 07:16 WBC 5.93 (3.98-10.04) K/mm3 RBC 4.44 (3.98-5.22) M/mm3 Hgb 12.2 (11.2-15.7) gm/L Hct 38.0 (34.1-44.9) % MCV 85.6 (79.4-94.8) fl MCH 27.5 (25.6-32.2) pg MCHC 32.1 L (32.2-35.5) g/dl RDW Std Deviation 43.2 (36.4-46.3) fL Plt Count 454 H (182-369) K/mm3 MPV 9.6 (9.4-12.3) fl Neut % (Auto) 56.2 (34.0-71.1) % Lymph % (Auto) 30.5 (19.3-51.7) % [place] % (Auto) 6.4 (4.7-12.5) % Eos % (Auto) 5.4 (0.7-5.8) Baso % (Auto) 1.2 (0.1-1.2) % Neut # (Auto) 3.33 (1.56-6.13) K/mm3 Lymph # (Auto) 1.81 (1.18-3.74) K/mm3 [place] # (Auto) 0.38 H (0.24-0.36) K/mm3 Eos # (Auto) 0.32 (0.04-0.36) K/mm3 Baso # (Auto) 0.07 (0.01-0.08) K/mm3 HCG, Quant 1.0 mIU/mL Blood Type O POSITIVE Gel Antibody Screen Negative Med Orders - Current: Current Medications Diphenhydramine HCl (Benadryl) 25 mg IVPUSH Q6H PRN PRN Reason: Pruritis Stop: 01/08/17 18:00 Lactated Ringer's (Ringers, Lactated) 1,000 mls @ 125 mls/hr IV ASDIRECTED CHIDI Stop: 01/08/17 23:00 Last Admin: 01/08/17 07:20 Dose: 125 mls/hr Promethazine HCl 6.25 mg/ (Sodium Chloride) 50.25 mls @ 100 mls/hr IV ONETIME PRN PRN Reason: Nausea/Vomiting Stop: 01/08/17 18:00 Lidocaine/Sodium Bicarbonate (Buffered Lidocaine 1% In Ns 8.4%) 0.25 ml .XX ONETIME PRN PRN Reason: Prior to IV Start Stop: 01/08/17 18:00 Last Admin: 01/08/17 07:19 Dose: 0.25 ml Meperidine HCl (Demerol) 12.5 mg IVPUSH ONETIME PRN PRN Reason: Shivering Stop: 01/08/17 18:00 Sodium Chloride (Saline Flush) 10 ml FLUSH ASDIRECTED PRN PRN Reason: Keep Vein Open Stop: 01/08/17 18:00 Discontinued Medications Bupivacaine HCl (Marcaine 0.5%) Confirm Administered Dose 30 ml .ROUTE .STK-MED ONE Stop: 01/08/17 07:17 Last Admin: 01/08/17 08:47 Dose: 30 ml Cefazolin Sodium (Ancef) Confirm Administered Dose 2 gm .ROUTE .STK-MED ONE Stop: 01/08/17 07:35 Dexamethasone (Dexamethasone) Confirm Administered Dose 20 mg .ROUTE .STK-MED ONE Stop: 01/08/17 07:34 Fentanyl (Sublimaze) Confirm Administered Dose 250 mcg .ROUTE .STK-MED ONE Stop: 01/08/17 07:32 Fentanyl (Sublimaze) 50 mcg IVPUSH Q5M PRN PRN Reason: Pain Stop: 01/08/17 10:46 Glycopyrrolate (Robinul) Confirm Administered Dose 0.4 mg .ROUTE .STK-MED ONE Stop: 01/08/17 10:51 Hydromorphone HCl (Dilaudid) Confirm Administered Dose 1 mg .ROUTE .STK-MED ONE Stop: 01/08/17 08:56 Hydromorphone HCl (Dilaudid) 0.5 mg IVPUSH Q15M PRN PRN Reason: Pain (severe 7-10) Stop: 01/08/17 10:46 Lidocaine HCl (Xylocaine-Mpf 1%) Confirm Administered Dose 4 mls @ as directed .ROUTE .STK-MED ONE Stop: 01/08/17 07:33 Ketamine HCl (Ketalar) Confirm Administered Dose 500 mg .ROUTE .STK-MED ONE Stop: 01/08/17 08:24 Ketorolac Tromethamine (Toradol) Confirm Administered Dose 30 mg .ROUTE .STK- MED ONE Stop: 01/08/17 11:13 Lidocaine/Epinephrine (Xylocaine 1% With Epinephrine 1:100,000) Confirm Administered Dose 20 ml .ROUTE .STK-MED ONE Stop: 01/08/17 07:16 Lidocaine/Sodium Bicarbonate (Buffered Lidocaine 1% In Ns 8.4%) 0.25 ml IV ONETIME PRN PRN Reason: Prior to IV Start Midazolam HCl (Versed 1 Mg/Ml) Confirm Administered Dose 2 mg .ROUTE .STK-MED ONE Stop: 01/08/17 07:32 Neostigmine Methylsulfate (Neostigmine Methylsulfate) Confirm Administered Dose 10 mg .ROUTE .STK-MED ONE Stop: 01/08/17 10:51 Ondansetron HCl (Zofran) Confirm Administered Dose 4 mg .ROUTE .STK-MED ONE Stop: 01/08/17 07:34 Propofol (Diprivan 20 Ml) Confirm Administered Dose 200 mg .ROUTE .STK-MED ONE Stop: 01/08/17 07:32 Rocuronium [place] (Zemuron) Confirm Administered Dose 50 mg .ROUTE .STK-MED ONE Stop: 01/08/17 07:34 Scopolamine (Transderm-Scop) 1.5 mg TOP ONETIME ONE Stop: 01/08/17 07:31 Last Admin: 01/08/17 07:28 Dose: 1.5 mg Sodium Chloride (Normal Saline) Confirm Administered Dose 50 ml .ROUTE .STK-MED ONE Stop: 01/08/17 07:17 *Q Meaningful Use (DIS) - VTE *Q VTE Criteria *Q: - Stroke *Q Stroke Criteria *Q: - AMI *Q AMI Criteria *Q:
[2017-01-08] MEDS ORDERED: Acetaminophen/oxyCODONE 325-5 MG Tab PO PRN (12:43)
[2017-01-08] MEDS ORDERED: Ibuprofen 600 MG Tab PO PRN (12:43)
[2017-01-08] MEDS ORDERED: Ondansetron 8 MG in Sodium Chloride 0.9% 50 ML IV ONE (12:43)
[2017-01-08] MEDS ORDERED: Loratadine 10 MG Tab PO PRN (13:00)
[2017-01-08] MEDS ORDERED: Ketorolac 30 MG/ML SDV IVPUSH PRN (17:30)
--- NOTE | 2017-01-08 18:58 | PCM.SN ---
- Free Text/Narrative Note: Awake, alert, no severe pain, no heavy vaginal bleeding. No leg cramps. Stable. Pain being manages and nausea not a problem at present.
[2017-01-09 07:51] VITALS: BP 122/68
--- NOTE | 2017-01-09 08:03 | PCM48HPAN ---
Post Anesthesia Note - EVALUATION WITHIN 48HRS OF ANESTHETIC Vital Signs in Normal Range: Yes Patient Participated in Evaluation: Yes Respiratory Function Stable: Yes Airway Patent: Yes Cardiovascular Function Stable: Yes Hydration Status Stable: Yes Pain Control Satisfactory: Yes Nausea and Vomiting Control Satisfactory: Yes Mental Status Recovered: Yes - COMMENTS/OBSERVATIONS Free Text/Narrative:: Patient doing well. Rested well last night. Denied and N/V, uncontrolled pain, or pruritus. Pt will be discharged home today.
--- NOTE | 2017-01-09 08:07 | PCM.DCSUM1 ---
Discharge Summary - Hospital Course Free Text/Narrative:: [facility] Post-Op/Procedure Note Patient Name: ANDI FIELDS Date of : 68 Patient Status: Observation Attending Provider: Len Trent Date: 01/08/17 10:54 Initialization Date: 01/08/17 10:54 - General Post-Op/Procedure Note Date of Surgery/Procedure: 01/08/17 Operative Procedure(s): Laparoscope assisted vaginal hysterectomy bilateral salpingo-oophorectomy 72159 Pre Op Diagnosis: Menorrhagia with bleeding every 2 weeks lasting 9 days heavy flow Post-Op Diagnosis: Same Anesthesia Technique: General ET Tube Primary Surgeon: Len Trent Secondary Surgeon: Marian Billy Anesthesia Provider: Wyatt Ramsey Brake Repairer: Kajal Ray (MS4) Brake Repairer: Divya Wilder (PAS) Fluid Replacement, Intraop: 1,500 Output, Urine Amount: 250 EBL in mLs: 100 Complications: None Condition: Good Free Text/Narrative:: Patient was transported to operating room #2 and placed under general anesthesia with endotracheal intubation the low dorsal lithotomy position and prepared and draped in a sterile fashion with non-iodine prep. Examination under anesthesia revealed upper limits to 6 weeks size uterus no adnexal masses SCDs in place and functioning prior surgery Ancef 2 g given intravenously prior to surgery timeout performed confirming name date of and procedure as laparoscope assisted vaginal hysterectomy bilateral salpingo-oophorectomy possible total abdominal hysterectomy bilateral salpingo-oophorectomy ( laparoscope assisted vaginal hysterectomy with bilateral salpingo-oophorectomy was performed) uterine manipulator was placed Hess catheter had been placed gravity drainage prior to placing the uterine manipulator and 2 mL of 0.5% Marcaine injected in the area of the planned umbilical incision and suprapubic incision. A 5 mm incision made at the umbilicus and suprapubically and varies needle introduced and pneumoperitoneum was obtained 5 mm trocar was then introduced and prompt visualization of the pelvic organs was accomplished the suprapubic 5 mm port was then passed and utilizing manipulator the tubes that were remaining after the tubal ligation the ovaries and uterus were identified the appendix was normal of the liver was normal. The decision was made to proceed with the laparoscope assisted portion of the hysterectomy additional trocar ports were placed on the left and right side trying to avoid the inferior epigastric vessels the left tube and ovary were grasped and elevated and crossclamping utilizing the LigaSure crossclamping activating and incising the infundibulopelvic ligament with good hemostasis. Proceeding towards the uterus remaining in the the area below the ovary and tube crossclamping activating and incising with the LigaSure until the tube and ovary were freed up from their blood supply the round ligament was then crossclamped with LigaSure activated and incised and proceeding caudad crossclamping activating and incising until the uterine supplied of blood of the left side was crossclamped and then a bladder flap was created crossclamping activating and incising with LigaSure until hemostasis was confirmed. Same procedure was carried out on the opposite side. And hemostasis was normal the tubes and ovaries were freed from their blood supply and attachments and decision made to then proceed vaginally. The trochars were left in place to reevaluate the surgical area after completion of the surgery. The uterus was grasped vaginally having removed the uterine manipulator during the vaginal portion of the procedure the cervix was injected with 0.25% lidocaine with epinephrine utilizing 10 mL and circumscribing the cervix with a knife the posterior colpotomy was performed. The uterosacral cardinal ligaments were then crossclamped utilizing LigaSure impact. Crossclamping activating and incising proceeding cephalad crossclamping activating and incising small pedicles were removed and the anterior colpotomy was able to be performed. The uterus was removed intact with the uterus and tubes and ovaries. Sponge needle pack asthma sharp count correct 2 the posterior cuff anterior cuff were closed with running locking suture of #0 Monocryl. Reinspection of the surgical site utilizing the laparoscope showed no bleeding irrigation carried out the irrigation fluid removed and still no bleeding sponge needle pack asthma sharp count correct 2 and the trochars were removed from the abdomen and the 4 incisions closed with interrupted 4-0 Monocryl and Dermabond applied. No blood transfusions were required not anticipated. Patient was transported postanesthesia care unit in satisfactory condition. I talked with family QUESTIONS were answered to their voiced satisfaction. One set of pictures taken image 001 shows the uterus and left side image 002 shows the left ovary and tube image 003 shows a right ovary and tube image 004 shows right ovary attempted appendix and the cecum. Image 005 shows the liver and diaphragm area. Image 006 shows the area of the surgery with no bleeding after completion of the procedure. I talked with the family and they live in town but I we will probably keep patient on observation status overnight because of difficulty of the procedure and to treat any nausea and vomiting as patient has a history of having nausea after surgery. And also for pain management. Did well through the night. Dismiss. HPI Initial Comments: [facility] Post-Op/Procedure Note Patient Name: ANDI FIELDS Date of : 68 Patient Status: Observation Attending Provider: Len Trent Date: 01/08/17 10:54 Initialization Date: 01/08/17 10:54 - General Post-Op/Procedure Note Date of Surgery/Procedure: 01/08/17 Operative Procedure(s): Laparoscope assisted vaginal hysterectomy bilateral salpingo-oophorectomy 76429 Pre Op Diagnosis: Menorrhagia with bleeding every 2 weeks lasting 9 days heavy flow Post-Op Diagnosis: Same Anesthesia Technique: General ET Tube Primary Surgeon: Len Trent Secondary Surgeon: Marian Billy Anesthesia Provider: Wyatt Ramsey Brake Repairer: Kajal Ray (MS4) Brake Repairer: Divya Wilder (PAS) Fluid Replacement, Intraop: 1,500 Output, Urine Amount: 250 EBL in mLs: 100 Complications: None Condition: Good Free Text/Narrative:: Patient was transported to operating room #2 and placed under general anesthesia with endotracheal intubation the low dorsal lithotomy position and prepared and draped in a sterile fashion with non-iodine prep. Examination under anesthesia revealed upper limits to 6 weeks size uterus no adnexal masses SCDs in place and functioning prior surgery Ancef 2 g given intravenously prior to surgery timeout performed confirming name date of and procedure as laparoscope assisted vaginal hysterectomy bilateral salpingo-oophorectomy possible total abdominal hysterectomy bilateral salpingo-oophorectomy ( laparoscope assisted vaginal hysterectomy with bilateral salpingo-oophorectomy was performed) uterine manipulator was placed Hess catheter had been placed gravity drainage prior to placing the uterine manipulator and 2 mL of 0.5% Marcaine injected in the area of the planned umbilical incision and suprapubic incision. A 5 mm incision made at the umbilicus and suprapubically and varies needle introduced and pneumoperitoneum was obtained 5 mm trocar was then introduced and prompt visualization of the pelvic organs was accomplished the suprapubic 5 mm port was then passed and utilizing manipulator the tubes that were remaining after the tubal ligation the ovaries and uterus were identified the appendix was normal of the liver was normal. The decision was made to proceed with the laparoscope assisted portion of the hysterectomy additional trocar ports were placed on the left and right side trying to avoid the inferior epigastric vessels the left tube and ovary were grasped and elevated and crossclamping utilizing the LigaSure crossclamping activating and incising the infundibulopelvic ligament with good hemostasis. Proceeding towards the uterus remaining in the the area below the ovary and tube crossclamping activating and incising with the LigaSure until the tube and ovary were freed up from their blood supply the round ligament was then crossclamped with LigaSure activated and incised and proceeding caudad crossclamping activating and incising until the uterine supplied of blood of the left side was crossclamped and then a bladder flap was created crossclamping activating and incising with LigaSure until hemostasis was confirmed. Same procedure was carried out on the opposite side. And hemostasis was normal the tubes and ovaries were freed from their blood supply and attachments and decision made to then proceed vaginally. The trochars were left in place to reevaluate the surgical area after completion of the surgery. The uterus was grasped vaginally having removed the uterine manipulator during the vaginal portion of the procedure the cervix was injected with 0.25% lidocaine with epinephrine utilizing 10 mL and circumscribing the cervix with a knife the posterior colpotomy was performed. The uterosacral cardinal ligaments were then crossclamped utilizing LigaSure impact. Crossclamping activating and incising proceeding cephalad crossclamping activating and incising small pedicles were removed and the anterior colpotomy was able to be performed. The uterus was removed intact with the uterus and tubes and ovaries. Sponge needle pack asthma sharp count correct 2 the posterior cuff anterior cuff were closed with running locking suture of #0 Monocryl. Reinspection of the surgical site utilizing the laparoscope showed no bleeding irrigation carried out the irrigation fluid removed and still no bleeding sponge needle pack asthma sharp count correct 2 and the trochars were removed from the abdomen and the 4 incisions closed with interrupted 4-0 Monocryl and Dermabond applied. No blood transfusions were required not anticipated. Patient was transported postanesthesia care unit in satisfactory condition. I talked with family QUESTIONS were answered to their voiced satisfaction. One set of pictures taken image 001 shows the uterus and left side image 002 shows the left ovary and tube image 003 shows a right ovary and tube image 004 shows right ovary attempted appendix and the cecum. Image 005 shows the liver and diaphragm area. Image 006 shows the area of the surgery with no bleeding after completion of the procedure. I talked with the family and they live in town but I we will probably keep patient on observation status overnight because of difficulty of the procedure and to treat any nausea and vomiting as patient has a history of having nausea after surgery. And also for pain management. Did well through the night. Dismiss. Brief History: [facility] . Post[facility]Op/Procedure Note. [facility]: [id number] Date of : Patient Status: Surgical Day Care. Attending Provider: Len Trentount Number: [id number]. Date: 01/08/17 10:54Initialization Date: 10:54. - General Post-Op/Procedure Note. Date of Surgery/Procedure: . Operative Procedure(s): Laparoscope assisted vaginal hysterectomy bilateral salpingo-oophorectomy 41026. Pre Op Diagnosis: Menorrhagia with bleeding every 2 weeks lasting 9 days heavy flow. Post-Op Diagnosis: Same. Anesthesia Technique: General ET Tube. Primary Surgeon: Len Trent. Secondary Surgeon: Marian Billy. Anesthesia Provider: Wyatt Ramsey. Brake Repairer: Kajal Ray (MS4). Brake Repairer: Divya Wilder (PAS). Fluid Replacement, Intraop: 1,500. Output, Urine Amount: 250. EBL in mLs: 100. Complications: None. Condition: Good. Free Text/Narrative:: Patient was transported to operating room #2 and placed under general anesthesia with endotracheal intubation the low dorsal lithotomy position and prepared and draped in a sterile fashion with non-iodine prep. Examination under anesthesia revealed upper limits to 6 weeks size uterus no adnexal masses SCDs in place and functioning prior surgery Ancef 2 g given intravenously prior to surgery timeout performed confirming name date of and procedure as laparoscope assisted vaginal hysterectomy bilateral salpingo-oophorectomy possible total abdominal hysterectomy bilateral salpingo-oophorectomy (laparoscope assisted vaginal hysterectomy with bilateral salpingo-oophorectomy was performed) uterine manipulator was placed Hess catheter had been placed gravity drainage prior to placing the uterine manipulator and 2 mL of 0.5% Marcaine injected in the area of the planned umbilical incision and suprapubic incision. A 5 mm incision made at the umbilicus and suprapubically and varies needle introduced and pneumoperitoneum was obtained 5 mm trocar was then introduced and prompt visualization of the pelvic organs was accomplished the suprapubic 5 mm port was then passed and utilizing manipulator the tubes that were remaining after the tubal ligation the ovaries and uterus were identified the appendix was normal of the liver was normal. The decision was made to proceed with the laparoscope assisted portion of the hysterectomy additional trocar ports were placed on the left and right side trying to avoid the inferior epigastric vessels the left tube and ovary were grasped and elevated and crossclamping utilizing the LigaSure crossclamping activating and incising the infundibulopelvic ligament with good hemostasis. Proceeding towards the uterus remaining in the the area below the ovary and tube crossclamping activating and incising with the LigaSure until the tube and ovary were freed up from their blood supply the round ligament was then crossclamped with LigaSure activated and incised and proceeding caudad crossclamping activating and incising until the uterine supplied of blood of the left side was crossclamped and then a bladder flap was created crossclamping activating and incising with LigaSure until hemostasis was confirmed. Same procedure was carried out on the opposite side. And hemostasis was normal the tubes and ovaries were freed from their blood supply and attachments and decision made to then proceed vaginally. The trochars were left in place to reevaluate the surgical area after completion of the surgery. The uterus was grasped vaginally having removed the uterine manipulator during the vaginal portion of the procedure the cervix was injected with 0.25% lidocaine with epinephrine utilizing 10 mL and circumscribing the cervix with a knife the posterior colpotomy was performed. The uterosacral cardinal ligaments were then crossclamped utilizing LigaSure impact. Crossclamping activating and incising proceeding cephalad crossclamping activating and incising small pedicles were removed and the anterior colpotomy was able to be performed. The uterus was removed intact with the uterus and tubes and ovaries. Sponge needle pack asthma sharp count correct 2 the posterior cuff anterior cuff were closed with running locking suture of #0 Monocryl. Reinspection of the surgical site utilizing the laparoscope showed no bleeding irrigation carried out the irrigation fluid removed and still no bleeding sponge needle pack asthma sharp count correct 2 and the trochars were removed from the abdomen and the 4 incisions closed with interrupted 4-0 Monocryl and Dermabond applied. No blood transfusions were required not anticipated. Patient was transported postanesthesia care unit in satisfactory condition. I talked with family QUESTIONS were answered to their voiced satisfaction. One set of pictures taken image 001 shows the uterus and left side image 002 shows the left ovary and tube image 003 shows a right ovary and tube image 004 shows right ovary attempted appendix and the cecum. Image 005 shows the liver and diaphragm area. Image 006 shows the area of the surgery with no bleeding after completion of the procedure. I talked with the family and they live in town but I we will probably keep patient on observation status overnight because of difficulty of the procedure and to treat any nausea and vomiting as patient has a history of having nausea after surgery. And also for pain management. - Discharge Data Discharge Date: 01/09/17 Discharge Disposition: Home, Self-Care 01 Condition: Good - Discharge Diagnosis/Problem(s) (1) Menorrhagia SNOMED Code(s): 263439076 ICD Code: N92.0 - EXCESSIVE AND FREQUENT MENSTRUATION WITH REGULAR CYCLE Status: Acute Current Visit: Yes Qualifiers: Menorrahagia type: with irregular cycle Qualified Code(s): N92.1 - Excessive and frequent menstruation with irregular cycle - Patient Summary/Data Operative Procedure(s) Performed: Laparoscope assisted vaginal hysterectomy bilateral salpingo-oophorectomy 57048 Complications: none Consults: none Hospital Course: uneventful - Patient Instructions Diet: Regular Diet as Tolerated Driving: Do Not Drive (2 weeks) Showering/Bathing: May Shower, No Tub Bathing/Swimming (For 6 weeks) Wound/Incision Care: Keep Operative Site/Wound Site Clean and Dry Notify Provider of: Fever, Increased Pain, Swelling and Redness, Drainage, Nausea and/or Vomiting - Discharge Plan Home Medications: Home Meds Fexofenadine [Alem] 180 mg PO DAILY PRN 07/03/15 [History] Referrals: Len Trent MD [Physician] - (4 weeks) - Discharge Summary/Plan Comment DC Time >30 min.: No - Patient Data Vitals - Most Recent: Last Vital Signs Temp 98.2 F 01/09/17 07:14 Pulse 82 01/09/17 07:14 Resp 19 01/09/17 07:14 BP 122/68 01/09/17 07:14 Pulse Ox 98 01/09/17 07:14 Weight - Most Recent: 256 lb I&O - Last 24 hours: Intake & Output 01/08/17 01/09/17 01/09/17 22:59 06:59 14:59 Intake Total 1400 Output Total 500 850 Balance 900 -850 Lab Results - Last 24 hrs: Laboratory Results - last 24 hr 01/08/17 01/08/17 01/09/17 Range/Units 07:16 07:16 06:25 WBC 11.83 H (3.98-10.04) K/mm3 RBC 4.02 (3.98-5.22) M/mm3 Hgb 11.0 L (11.2-15.7) gm/L Hct 34.9 (34.1-44.9) % MCV 86.8 (79.4-94.8) fl MCH 27.4 (25.6-32.2) pg MCHC 31.5 L (32.2-35.5) g/dl RDW Std Deviation 44.0 (36.4-46.3) fL Plt Count 430 H (182-369) K/mm3 MPV 10.2 (9.4-12.3) fl Neut % (Auto) 67.3 (34.0-71.1) % Lymph % (Auto) 24.8 (19.3-51.7) % [place]corn % (Auto) 6.8 (4.7-12.5) % Eos % (Auto) 0.6 L (0.7-5.8) Baso % (Auto) 0.3 (0.1-1.2) % Neut # (Auto) 7.97 H (1.56-6.13) K/mm3 Lymph # (Auto) 2.93 (1.18-3.74) K/mm3 Alcorn # (Auto) 0.81 H (0.24-0.36) K/mm3 Eos # (Auto) 0.07 (0.04-0.36) K/mm3 Baso # (Auto) 0.03 (0.01-0.08) K/mm3 HCG, Quant 1.0 mIU/mL Blood Type O POSITIVE Gel Antibody Screen Negative Med Orders - Current: Current Medications Hydromorphone HCl (Dilaudid) 0.2 mg IVPUSH Q2H PRN PRN Reason: Pain (severe 7-10) Last Admin: 01/08/17 14:25 Dose: 0.2 mg Ibuprofen (Motrin) 600 mg PO Q6H PRN PRN Reason: Pain (mild 1-3) Ketorolac Tromethamine (Toradol) 30 mg IVPUSH Q8H PRN PRN Reason: Pain (moderate 4-6) Stop: 01/09/17 09:31 Last Admin: 01/08/17 19:50 Dose: 30 mg Loratadine (Claritin) 10 mg PO DAILY PRN PRN Reason: SEASONAL ALLERGIES Oxycodone/Acetaminophen (Percocet 325-5 Mg) 2 tab PO Q4H PRN PRN Reason: Pain (moderate 4-6) Discontinued Medications Bupivacaine HCl (Marcaine 0.5%) Confirm Administered Dose 30 ml .ROUTE .STK-MED ONE Stop: 01/08/17 07:17 Last Admin: 01/08/17 08:47 Dose: 30 ml Cefazolin Sodium (Ancef) Confirm Administered Dose 2 gm .ROUTE .STK-MED ONE Stop: 01/08/17 07:35 Dexamethasone (Dexamethasone) Confirm Administered Dose 20 mg .ROUTE .STK-MED ONE Stop: 01/08/17 07:34 Diphenhydramine HCl (Benadryl) 25 mg IVPUSH Q6H PRN PRN Reason: Pruritis Stop: 01/08/17 18:00 Fentanyl (Sublimaze) Confirm Administered Dose 250 mcg .ROUTE .STK-MED ONE Stop: 01/08/17 07:32 Fentanyl (Sublimaze) 50 mcg IVPUSH Q5M PRN PRN Reason: Pain Stop: 01/08/17 10:46 Last Admin: 01/08/17 11:47 Dose: 50 mcg Glycopyrrolate (Robinul) Confirm Administered Dose 0.4 mg .ROUTE .STK-MED ONE Stop: 01/08/17 10:51 Hydromorphone HCl (Dilaudid) Confirm Administered Dose 1 mg .ROUTE .STK-MED ONE Stop: 01/08/17 08:56 Hydromorphone HCl (Dilaudid) 0.5 mg IVPUSH Q15M PRN PRN Reason: Pain (severe 7-10) Stop: 01/08/17 10:46 Lactated Ringer's (Ringers, Lactated) 1,000 mls @ 125 mls/hr IV ASDIRECTED CHIDI Stop: 01/08/17 23:00 Last Admin: 01/08/17 13:17 Dose: 125 mls/hr Lidocaine HCl (Xylocaine-Mpf 1%) Confirm Administered Dose 4 mls @ as directed .ROUTE .STK-MED ONE Stop: 01/08/17 07:33 Promethazine HCl 6.25 mg/ (Sodium Chloride) 50.25 mls @ 100 mls/hr IV ONETIME PRN PRN Reason: Nausea/Vomiting Stop: 01/08/17 18:00 Ondansetron HCl 8 mg/ Sodium (Chloride) 54 mls @ 100 mls/hr IV ONETIME ONE Stop: 01/08/17 13:15 Last Admin: 01/08/17 13:23 Dose: 100 mls/hr Ketamine HCl (Ketalar) Confirm Administered Dose 500 mg .ROUTE .STK-MED ONE Stop: 01/08/17 08:24 Ketorolac Tromethamine (Toradol) Confirm Administered Dose 30 mg .ROUTE .STK- MED ONE Stop: 01/08/17 11:13 Lidocaine/Epinephrine (Xylocaine 1% With Epinephrine 1:100,000) Confirm Administered Dose 20 ml .ROUTE .STK-MED ONE Stop: 01/08/17 07:16 Lidocaine/Sodium Bicarbonate (Buffered Lidocaine 1% In Ns 8.4%) 0.25 ml IV ONETIME PRN PRN Reason: Prior to IV Start Lidocaine/Sodium Bicarbonate (Buffered Lidocaine 1% In Ns 8.4%) 0.25 ml .XX ONETIME PRN PRN Reason: Prior to IV Start Stop: 01/08/17 18:00 Last Admin: 01/08/17 07:19 Dose: 0.25 ml Meperidine HCl (Demerol) 12.5 mg IVPUSH ONETIME PRN PRN Reason: Shivering Stop: 01/08/17 18:00 Midazolam HCl (Versed 1 Mg/Ml) Confirm Administered Dose 2 mg .ROUTE .STK-MED ONE Stop: 01/08/17 07:32 Neostigmine Methylsulfate (Neostigmine Methylsulfate) Confirm Administered Dose 10 mg .ROUTE .STK-MED ONE Stop: 01/08/17 10:51 Ondansetron HCl (Zofran) Confirm Administered Dose 4 mg .ROUTE .STK-MED ONE Stop: 01/08/17 07:34 Propofol (Diprivan 20 Ml) Confirm Administered Dose 200 mg .ROUTE .STK-MED ONE Stop: 01/08/17 07:32 Rocuronium [place] (Zemuron) Confirm Administered Dose 50 mg .ROUTE .STK-MED ONE Stop: 01/08/17 07:34 Scopolamine (Transderm-Scop) 1.5 mg TOP ONETIME ONE Stop: 01/08/17 07:31 Last Admin: 01/08/17 07:28 Dose: 1.5 mg Sodium Chloride (Saline Flush) 10 ml FLUSH ASDIRECTED PRN PRN Reason: Keep Vein Open Stop: 01/08/17 18:00 Sodium Chloride (Normal Saline) Confirm Administered Dose 50 ml .ROUTE .STK-MED ONE Stop: 01/08/17 07:17 *Q Meaningful Use (DIS) - VTE *Q VTE Criteria *Q: - Stroke *Q Stroke Criteria *Q: - AMI *Q AMI Criteria *Q:
== END 2017-01-09 08:52 | disposition home or self-care (01) ==
LOC: JD.SDS 06:55 → JD.MS 12:43
PROVIDERS: ADMIT Obstetrics & Gynecology; ATTEND Obstetrics & Gynecology
DX: N72 Inflammatory disease of cervix uteri (principal); N88.8 Other specified noninflammatory disorders of cervix uteri; N80.0 Endometriosis of uterus; D25.0 Submucous leiomyoma of uterus; D25.1 Intramural leiomyoma of uterus; D25.2 Subserosal leiomyoma of uterus; N83.11 Corpus luteum cyst of right ovary; N83.12 Corpus luteum cyst of left ovary; N83.8 Other noninflammatory disorders of ovary, fallopian tube and broad ligament; N80.2 Endometriosis of fallopian tube; G43.909 Migraine, unspecified, not intractable, without status migrainosus; Z91.013 Allergy to seafood; Z91.048 Other nonmedicinal substance allergy status; Z98.51 Tubal ligation status; Z98.890 Other specified postprocedural states; Z87.891 Personal history of nicotine dependence; Z68.42 Body mass index [BMI] 45.0-49.9, adult
CPT/HCPCS: 36415; 58552; 84702; 85025; 86850; 86900; 86901; A9270; G0378; J0690; J1100; J1170; J1885; J2250; J2405; J2710; J3010; J3490; J7050; J7120; 00840; J2704

== ENCOUNTER 2018-10-08 01:18 | Emergency (ER) | payer OTHER, BC ==
[2018-10-08 01:28] VITALS: BP 165/105
--- NOTE | 2018-10-08 01:56 | EDM.PDOC ---
ED HPI GENERAL MEDICAL PROBLEM - General Chief Complaint: Chest Pain Stated Complaint: CHEST PAIN Time Seen by Provider: 10/08/18 01:28 Source of Information: Reports: Patient, Family (), RN Notes Reviewed History Limitations: Reports: No Limitations - History of Present Illness INITIAL COMMENTS - FREE TEXT/NARRATIVE: The patient states that she was pulling a pallet with a pallet santosh around 00: 30 this morning, when she developed sudden onset upper right chest pain that radiated down her right upper extremity. She had some nausea, but denies having lightheadedness (as reported in the triage note). Here in the ED, the patient states that she feels fine, although she still has the right upper chest pain if she moves her right upper extremity in a certain manner, such as crossing her right arm across her chest. At no time did the patient have dyspnea, diaphoresis, or sense of impending doom. The patient states that she had similar symptoms around 10 years ago. Her workup was negative, and she was diagnosed with a muscle strain. The patient's PCP is Dr. Aletha Allen. The patient intends to see Dr. Allen tomorrow. - Related Data Allergies Allergy/AdvReac Type Severity Reaction Status Date / Time adhesive Allergy Rash Verified 10/08/18 01:29 Iodine and Iodide Containing Allergy Anaphylactic Verified 10/08/18 01:29 Produc Shock shellfish derived Allergy Anaphylactic Verified 10/08/18 01:29 Shock Home Meds: Home Meds Fexofenadine [Alem] 180 mg PO DAILY PRN 07/03/15 [History] Past Medical History HEENT History: Reports: Allergic Rhinitis [employer] History: Reports: Musculoskeletal History: Reports: Arthritis, Fracture (left rib) Endocrine/Metabolic History: Reports: Obesity/BMI 30+ Dermatologic History: Reports: Urticaria Other Dermatologic History: chronic hive disorder - Infectious Disease History Infectious Disease History: Reports: Chicken Pox, Measles, Mumps - Past Surgical History HEENT Surgical History: Reports: Oral Surgery (wisdom teeth extraction) Female Surgical History: Reports: Section (x 1), Hysterectomy ( complete), Salpingo-Oophorectomy Social & Family History - Family History Family Medical History: Noncontributory - Tobacco Use Smoking Status *Q: Former Smoker Years of Tobacco use: 17 Packs/Tins Daily: 2 - Caffeine Use Caffeine Use: Reports: None - Alcohol Use Alcohol Use History: Yes Alcohol Use Frequency: Rarely - Recreational Drug Use Recreational Drug Use: Yes Drug Use in Last 12 Months: No Recreational Drug Type: Reports: Cocaine (last snorted/smoked around 1990), Marijuana/Hashish (last smoked around 1991) - Living Situation & Occupation Living situation: Reports: , with Spouse Occupation: Employed ([employer]) ED ROS GENERAL - Review of Systems Review Of Systems: ROS reveals no pertinent complaints other than HPI. ED EXAM, GENERAL - Physical Exam Exam: See Below Exam Limited By: No Limitations General Appearance: Alert, WD/WN, No Apparent Distress Eye Exam: Bilateral Eye: EOMI, Normal Inspection Ears: Normal External Exam, Hearing Grossly Normal Nose: Normal Inspection Throat/Mouth: Normal Inspection, Normal Lips, Normal Voice, No Airway Compromise Head: Atraumatic, Normocephalic Neck: Normal Inspection, Full Range of Motion Respiratory/Chest: No Respiratory Distress, Lungs Clear, Normal Breath Sounds, No Accessory Muscle Use, Other (Reproducible tenderness to palpation of the right upper pectoralis muscle. Pain is also induced with the patient crossing her right upper extremity across her chest.) Cardiovascular: Normal Peripheral Pulses, Regular Rate, Rhythm, No Gallop, No JVD, No Murmur, No Rub Peripheral Pulses: 4+: Radial (L), Radial (R) GI/Abdominal: Normal Bowel Sounds, Soft, Non-Tender, No Organomegaly, No Distention, No Abnormal Bruit, No Mass, Other (Obese) (Female) Exam: Deferred Rectal (Female) Exam: Deferred Back Exam: Normal Inspection, Full Range of Motion, NT Extremities: Normal Inspection, Normal Range of Motion, No Pedal Edema, Normal Capillary Refill Neurological: Alert, Oriented, Normal Cognition, No Motor/Sensory Deficits Psychiatric: Normal Affect Skin Exam: Warm, Dry, Intact, Normal Color, No Rash EKG INTERPRETATION EKG Date: 10/08/18 Time: 01:27 Rhythm: NSR Rate (Beats/Min): 77 [place]: Normal P-Wave: Present QRS: Normal ST-T: Normal QT: Normal Comparison: No Change (07/18/2016) Course - Vital Signs Last Recorded V/S: Last Vital Signs Temp 36.5 C 10/08/18 01:26 Pulse 79 10/08/18 01:26 Resp 16 10/08/18 01:26 BP 165/105 H 10/08/18 01:26 Pulse Ox 100 10/08/18 01:26 - Orders/Labs/Meds Orders: Active Orders 24 hr Category Date Time Status EKG Documentation Completion [RC] STAT Care 10/08/18 01:36 Active - Re-Assessments/Exams Free Text/Narrative Re-Assessment/Exam: 10/08/18 01:50 Clearly, the patient has strained her upper lateral right pectoralis muscle. She is already on meloxicam, therefore I am not recommending any changes in her medications, however, I will write a note for work to decrease the use of her right upper extremity for a few days. The patient stated that she will be following up with her PCP tomorrow morning. Departure - Departure Time of Disposition: 01:51 Disposition: Home, Self-Care 01 Condition: Good Clinical Impression: Strain of right pectoralis muscle - Discharge Information *PRESCRIPTION DRUG MONITORING PROGRAM REVIEWED*: Not Applicable *COPY OF PRESCRIPTION DRUG MONITORING REPORT IN PATIENT SATISH: Not Applicable Instructions: Muscle Strain Referrals: Aletha Allen MD [Primary Care Provider] - Forms: ED Department Discharge, ED Return to Work/School Form Additional Instructions: You were seen in the emergency room after developing sudden onset right upper chest pain when pulling a pallet at work. Workup in the ER included an ECG, which was normal. Based on your history and physical exam, you have strained your right pectoralis muscle. We recommend that you continue to take your previously prescribed meloxicam ( Mobic) as prescribed. We recommend that you continue to use your right upper extremity, but that you not lift or pull more than 5 pounds until it feels better. A note for work has been provided to you through 10/10/2018. A note for a longer period of time can be provided through your PCP, Dr. Aletha Allen. If any other problems, please do not hesitate to return to the ER. - My Orders Last 24 Hours: My Active Orders 10/08/18 01:36 EKG Documentation Completion [RC] STAT - Assessment/Plan Last 24 Hours: My Active Orders 10/08/18 01:36 EKG Documentation Completion [RC] STAT
== END 2018-10-08 02:05 | disposition home or self-care (01) ==
LOC: JD.ED 01:18
DX: S29.011A Strain of muscle and tendon of front wall of thorax, initial encounter (principal); Z87.891 Personal history of nicotine dependence; Z79.899 Other long term (current) drug therapy; Z91.09 Other allergy status, other than to drugs and biological substances; Z91.013 Allergy to seafood; Z88.8 Allergy status to other drugs, medicaments and biological substances; X58.XXXA Exposure to other specified factors, initial encounter
CPT/HCPCS: 93005; 93010; 99283; 99284-25